=== PATIENT | male | born 1965 | race Asian ===

== ENCOUNTER 2017-11-28 09:39 | Emergency (ER) | payer OTHER ==
[2017-11-28] MEDS ORDERED: LIDOCAINE PATCH 5% TOP PRN (10:03)
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
[2017-11-28 10:32] VITALS: BP 134/87
== END 2017-11-28 10:31 | disposition home or self-care (01) ==
LOC: ED 09:39
DX: S10.83XA Contusion of other specified part of neck, initial encounter (principal); W22.8XXA Striking against or struck by other objects, initial encounter; Y99.0 Civilian activity done for income or pay; I10 Essential (primary) hypertension
CPT/HCPCS: 1040M; 99283; A9270

== ENCOUNTER 2019-04-22 05:27 | Emergency (ER) | payer OTHER ==
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
[2019-04-22] MEDS ORDERED: BACITRACIN ZINC OINT 14 GM TOP STA (05:49)
[2019-04-22] MEDS ORDERED: oxyCODONE/ACET 5/325 Prepack 4 PO STA (05:49)
[2019-04-22] MEDS ORDERED: IBUPROFEN 600 MG TABLET PO STA (05:49)
[2019-04-22] MEDS ORDERED: TETANUS/DIPHTHERIA/PERTUSSIS 0.5 ML SYRINGE IM ONE (06:04)
[2019-04-22 06:11] VITALS: BP 160/100
== END 2019-04-22 06:11 | disposition home or self-care (01) ==
LOC: ED 05:27
DX: T23.061A Burn of unspecified degree of back of right hand, initial encounter (principal); I10 Essential (primary) hypertension; T31.0 Burns involving less than 10% of body surface; T79.9XXA Unspecified early complication of trauma, initial encounter; X08.8XXA Exposure to other specified smoke, fire and flames, initial encounter; Y93.89 Activity, other specified; Y92.009 Unspecified place in unspecified non-institutional (private) residence as the place of occurrence of the external cause
CPT/HCPCS: 90715; A9270; 16020; 90471